=== PATIENT | female | born 1980 | race Hispanic/Latino ===

== ENCOUNTER 2018-10-20 06:00 | Inpatient (IN) | payer MEDICAID, OTHER, SELFPAY ==
[2018-10-20 07:17] VITALS: BMI 29.9
[2018-10-20] MEDS ORDERED: Promethazine HCl 25 MG/ML VIAL IM PRN ×2 (08:08→16:04)
[2018-10-20] MEDS ORDERED: NS / Oxytocin 40 units/1000ml 1,000 ML IV PRN (08:08)
[2018-10-20] MEDS ORDERED: Labetalol 100 MG TAB PO SCH ×2 (08:08→22:45)
[2018-10-20] MEDS ORDERED: Ondansetron PF 4 MG/2 ML Vial IVP PRN ×2 (08:08→16:04)
[2018-10-20] MEDS ORDERED: Lidocaine 1% (PF) 30 ML VIAL SC PRN (08:08)
[2018-10-20] MEDS ORDERED: Ibuprofen 800 MG TAB PO PRN (08:08)
[2018-10-20] MEDS ORDERED: NS w/ Oxytocin 10 units 500 ML IV SCH (08:08)
--- NOTE | 2018-10-20 08:08 | PDOC.FPROB ---
FMR OB H&P: HPI - History of Present Illness Chief Complaint: Induction of Labor History of Present Illness: Patient is a 38 yo at 38.1 weeks by 10.4wk tete who presents for induction of labor for chronic Hypertension. Chronic HTN: Patient usually takes Labetalol 100 mg BID, last dose was yesterday evening. BP logs have been at goal. course was complicated by exposure to an Losartan in the 1st trimester. 24hr urine protein 165. Anemia: complicated by anemia for which patient took iron tablets. UTI: Patient also had UTI and was taking Macrobid & Cephalexin in early 1st trimester. Urine culture negative. Patient denies any complaints currently. Denies contractions, vaginal bleeding, vaginal discharge, loss of fluid. FMR OB H&P: Current - Care : 9 Para: 7 Gestational age: 38.1 weeks Dating Criteria: 10.4 week U/S - OB Labs Blood type: O RH: positive Antibody Screen: negative HIV: negative RPR: negative HepBsAg: negative Rubella: immune Quad screen: negative Urine drug screen: negative Gonorrhea: negative Chlamydia: negative 1 hour gtt: 115 3 hour GTT: 130 A1c: 5.2% GBS: negative FMR OB H&P: History - Past Medical History PMH: Chronic HTN, Anemia, hx of UTI - OB History OB History: , all previous deliveries were vaginal and uncomplicated - Surgical History Sx History: Mastitis surgery 12 yrs ago - Social History Social History: Denies tobacco or EtOH use FMR OB H&P: Medications - Current Home Medications: Medication Instructions Recorded Confirmed Type Iron 18 mg PO DAILY 10/20/18 10/20/18 History Labetalol [Normodyne] 100 mg PO BID 10/20/18 10/20/18 History PNV No.118/Iron Fumarate/FA 100 mg PO DAILY 10/20/18 10/20/18 History [ 19 Chewable Tablet] Allergies/Adverse Reactions: Allergies Allergy/AdvReac Type Severity Reaction Status Date / Time verapamil Allergy Intermediate Verified 10/20/18 07:21 escitalopram [From Lexapro] Allergy Mild Verified 10/20/18 07:39 Pork/Porcine Containing Allergy Mild Verified 10/20/18 07:21 Products FMR OB H&P: ROS - Review of Systems General: denies: fever/chills, weight/appetite/sleep changes, fatigue Eyes: denies: eye pain, vision changes, double vision ENT: denies: nasal congestion, rhinorrhea, sore throat Cardiovascular: denies: chest pain, palpitation, edema, claudication Respiratory: denies: cough, congestion, shortness of breath Gastrointestinal: denies: abdominal pain, bloating, nausea, vomiting, bright red blood Genitourinary (Female): denies: incontinence, dysuria, vaginal discharge, vaginal pain, vaginal bleeding, vaginal pressure Musculoskeletal: denies: pain, swelling, decrease range of motion Neurologic: denies: numbness, syncope, loss of counsciousness, headache Integumentary: denies: itching, rash, lesions Hematologic/Lymphatic: denies: prolonged or excessive bleeding Psychological: denies: depression FMR OB H&P: Vital Signs - Maternal Vital signs: BP 152/101 @ 0740 - Heart Tones Baseline: 150 Variability: moderate Acceleration: present Deceleration: absent Category: category [address] [place] contractions every: occasional/infrequent FMR OB H&P: Physical Exam - Physical Exam General: NAD, awake, alert and oriented HEENT: normocephalic and atraumatic, EOMI, MMM, conjunctiva clear, no scleral icterus, grossly normal vision, grossly normal hearing, good dention Neck: supple, FROM, no JVD Heart: RRR, normal S1/S2, no murmurs/rubs/gallops, pulses present, no edema General: CTAB, no respiratory distress, good air movement, no rales/rhonchi, no wheezing Abdomen: soft, non-tender Musculoskeletal: pulses present, FROM in all four extremities Neurological: sensation to pain,touch and proprioception grossly normal, no focal deficit Skin: no rash, good tugor, no jaundice Lymphatic: no unusual bruising or bleeding Psychiatric: intact recent and remote memory, normal mood and affect - Pelvic Exam Vulva: normal hair distribution, no discharge, no blood SVE: 3-4/50/-3 Pham score: 4 Membranes: intact Presentation: cephalic FMR OB H&P: A/P - Problem List (1) Elective induction of labor planned Current Visit: Yes Status: Acute Code(s): [id number] - (2) Anemia Current Visit: Yes Status: Acute Code(s): D64.9 - ANEMIA, UNSPECIFIED Qualifiers: Anemia type: iron deficiency (3) Chronic hypertension during Current Visit: Yes Status: Acute Code(s): O10.919 - UNSP PRE-EXISTING HTN COMP , UNSP TRIMESTER Disposition: #Induction of Labor for chronic HTN -initial check 3-4/50%/-3 -will start Pitocin titration -Cytotec not indicated -will perform cervical check in 3-4 hrs #Anemia -check H/H -patient previously taking daily iron #Chronic HTN -check urine Cr and protein -continue Labetalol, with a 1 time now dose, then resume BID -monitor BP -Hydralazine prn -last 24 hr urine protein 165 - exposure to Losartan in 1st trimester, anatomy U/S normal (level 2 sono normal) #Hx of UTI -recent urine culture negative -GBS negative #Increased risk of TB -TB test read today was negative #Glucose Intolerance -failed 1 hr GTT, passed 3hr GTT with 1 abnormal at 2 hr -TSH normal Discussion: Date/Time: 10/20/18806 This H&P was discussed with Dr. Romero and Dr. Geronimo who agree with the above documentation and plan. Addendum - Attending - Attending Attestation Date/Time: 10/20/18949 I personally evaluated the patient and discussed the management with Dr. Roberts I agree with the History, Examination, Assessment and Plan documented above with any addition or exceptions noted below. 38 yo at 38.1 weeks by 10.4wk griseldao undergoing induction of labor for chronic hypertension controlled on oral medications. 1. Start IOL with pitocin 2. GBS negative. Prophylaxis not indicated 3. Cephalic by sutures 4. Chronic anemia of 5. Chronic hypertension-has had multiple severe range pressures this morning but pt did not take her medication. Denies FIERRO, vision changes or RUQ pain. Will give medication now. If she continues to have elevated pressures in severe range will start magnesium for superimposed preeclampsia. 6. Grand multip-PPH risk. Will have uterotonics at bedside. No methergine per #6 7. Anticipate
[2018-10-20] MEDS: Lactated Ringer's 1,000 ML IV SCH ×2 (08:28→14:54)
[2018-10-20] MEDS: hydrALAZINE 20 MG/ML VIAL SLOW IVP PRN ×2 (08:42→22:05)
[2018-10-20 08:52] LABS: Hemoglobin 11.9 g/dL (12.0-16.0); Mean Corpuscular HGB CONC 33.6 g/dL (32.0-36.0); Mean Corpuscular Hemoglobin 27.7 pg (27.0-31.0); Mean Corpuscular Volume 82.4 fL (78.0-98.0); Platelet Count 224 thou/uL (130-400); RBC Distribution Width 15.1 % (11.5-14.5); White Blood Cell (WBC) Count 7.9 thou/uL (4.8-10.8)
[2018-10-20 09:24] LABS: ALT (SGPT) 11 U/L (8-55); AST (SGOT) 20 U/L (5-34); Albumin 3.5 g/dL (3.5-5.0); Alkaline Phosphatase 130 U/L (40-150); Anion Gap 15 mmol/L (10-20); BUN (Urea Nitrogen) 8 mg/dL (7.0-18.7); Bilirubin, Total 0.3 mg/dL (0.2-1.2); Calc. Creatinine Clearance 174 mL/min (70-130); Calcium 8.7 mg/dL (7.8-10.44); Carbon Dioxide 18 mmol/L (22-29); Chloride 106 mmol/L (98-107); Estimated GFR-MDRD Greater than 90; Globulin 3.4 g/dL (2.4-3.5); Glucose 71 mg/dL (70-105); Potassium 3.9 mmol/L (3.5-5.1); Protein, Total 6.9 g/dL (6.0-8.3); Sodium 135 mmol/L (136-145)
[2018-10-20 09:32] LABS: HBSAg Index 0.16 S/CO (0-0.99); Hep B Surf Ag Non-Reactive S/CO (NonReactive); Syphilis Antibody Nonreactive (Nonreactive); Syphilis Antibody Index 0.05 S/CO (<1.00 Non-Reactive)
[2018-10-20] MEDS ORDERED: Calcium Gluc 4.6 MEQ/10 ML (100 MG/ML) SLOW IVP PRN (10:13)
[2018-10-20] MEDS ORDERED: Magnesium Sulfate 20 GM/WATER 500 ML BAG IVPB SCH (10:15)
[2018-10-20] MEDS ORDERED: Magnesium Sulfate 20 gm/500 ml 20 GM/500 ML BAG ONE (10:30)
[2018-10-20] MEDS: Magnesium Sulfate 20 gm/500 ml 20 GM/500 ML BAG IVPB SCH ×2 (10:51→21:53)
[2018-10-20] MEDS ORDERED: Bupivacaine 0.25% HCL 30 ML VIAL ONE (11:11)
[2018-10-20] MEDS ORDERED: Acetaminophen 325 MG TAB PO PRN (11:18)
--- NOTE | 2018-10-20 12:15 | PDOC.LDPN ---
Labor & Delivery Progress Note - Subjective Subjective: comfortable (Denies SOB, FIERRO, vision changes, nausea, vomiting. Complains of mild FIERRO and abd tenderness.) - Objective Abnormal vital signs: BP 163/97, HR 68, UOP 300cc in past 1 hour. General: NAD, resting, breathing through contractions Uterine fundus: non tender SVE: 460/-3 Station: -3 FHT: category 1 [place] contractions every: 2-3 min Other exam findings: RUQ mildly TTP. Heart RRR, no murmur. Lungs CTA bilat. DTRs 2+ in LE. - Assessment (1) Elective induction of labor planned Code(s): [id number] - Current Visit: Yes Status: Acute (2) Anemia Code(s): D64.9 - ANEMIA, UNSPECIFIED Current Visit: Yes Status: Acute Qualifiers: Anemia type: iron deficiency (3) Chronic hypertension during Code(s): O10.919 - UNSP PRE-EXISTING HTN COMP , UNSP TRIMESTER Current Visit: Yes Status: Acute Plan: continue plan of care -: Patient started on Magnesium at approx. 1030 today. No signs of Mag toxicity at this time. BP remains elevated in 160s/90s through morning. Will add on prn Labetalol 20mg IVP per [facility] protocol. FHR tracing shows HR 135, reactive & reassuring. Will continue to monitor with serial cervical checks. Will also perform Mag checks every 2 hours.
--- NOTE | 2018-10-20 14:13 | PDOC.LDPN ---
Labor & Delivery Progress Note - Subjective Subjective: comfortable - Objective Abnormal vital signs: few severe range blood pressures, on magnesium General: NAD Uterine fundus: non tender SVE: @ [address] Lawrence - 4/60/-2/anterior/soft FHT: category 1, variability present [place] contractions every: 2 min AROM: clear fluid IUPC placed: yes - Assessment (1) Term Code(s): Z34.90 - ENCNTR FOR SUPRVSN OF NORMAL , UNSP, UNSP TRIMESTER Current Visit: Yes Status: Acute (2) Chronic hypertension with superimposed preeclampsia Code(s): O11.9 - PRE-EXISTING HYPERTENSION WITH PRE-ECLAMPSIA, UNSP TRIMESTER Current Visit: Yes Status: Acute Plan: continue plan of care Addendum - Attending - Attending Attestation Date/Time: 10/21/18 0936 I personally evaluated the patient and discussed the management with Dr. Lawrence. I agree with the History, Examination, Assessment and Plan documented above with any addition or exceptions noted below. Continue neuro checks/sz precuations/BP monitoring and magnesium with strict I/ Os
[2018-10-20] MEDS: Labetalol HCl 100 MG/20 ML VIAL SLOW IVP PRN ×2 (14:56→16:06)
[2018-10-20] MEDS ORDERED: Fentanyl 4 mcg/Bup 0.1% Cadd 100 ML ONE (15:10)
[2018-10-20] MEDS ORDERED: diphenhydrAMINE 50 MG/ML VIAL IVP PRN (16:04)
[2018-10-20] MEDS ORDERED: Lactated Ringer's 500 ML IV PRN (16:04)
[2018-10-20] MEDS ORDERED: Naloxone HCl 0.4 mg/ml Vial IVP PRN ×2 (16:04)
[2018-10-20] MEDS ORDERED: ePHEDrine/0.9% NaCl/PF SYRINGE 50 mg/10 ml SLOW IVP PRN (16:04)
[2018-10-20] MEDS ORDERED: Communication Order-Pharmacy FS SCH (16:15)
[2018-10-20] MEDS ORDERED: Fentanyl 4 mcg/Bupivacaine 0.1% Cassette 100 ML EPIDURAL SCH (16:15)
[2018-10-20] MEDS ORDERED: Lidocaine 1% (PF) 30 ML VIAL ONE (16:48)
[2018-10-20] MEDS ORDERED: NS / Oxytocin 40 units/1000ml 0 ML ONE (16:48)
[2018-10-20] MEDS ORDERED: Misoprostol 200 MCG TAB ONE ×2 (17:10→17:17)
[2018-10-20] MEDS ORDERED: NS / Oxytocin 40 units/1000ml 1,000 ML ONE (17:17)
[2018-10-20] MEDS ORDERED: Methylergonovine 0.2 MG/ML VIAL ONE (17:17)
[2018-10-20] MEDS ORDERED: Carboprost 250 MCG/ML AMP ONE (17:17)
[2018-10-20] MEDS ORDERED: Misoprostol 200 MCG TAB PR SCH (17:30)
--- NOTE | 2018-10-20 18:17 | PDOC.OPDEL ---
OB Operative/Delivery Note Delivery Dr/Surgeon: Howard Roberts Williamson Pre-Delivery Diagnosis: medically indicated induction (chronic HTN) Procedure/Post Delivery Dx: spontaneous vaginal delivery Anesthesia: epidural - Additional Findings/Plan Placenta delivered: spontaneous Repaired Obstetrical Laceration: none Estimated blood loss: 570 mL Compilations/Other Findings: Pre-op Diagnosis: 1. Term intrauterine in labor 2. Chronic hypertension with superimposed Pre-eclampsia 3. Anemia 4. Grand multiparous 5. Advanced maternal age Post-op Diagnosis: 1. Term intrauterine , delivered 2. same as above Indications: A 38 y/o female presents to L&D for induction due to chronic hypertension. Delivery Note: This is 38 yo F @ 38.1 wks who delivered a viable M at 1707. Following an antepartum course complicated by pre-eclampsia superimposed on chronic hypertension requiring Magnesium and Labetalol prn, a vigorous male was delivered over an intact perineum in the LOP position. Anterior Shoulder and then remainder of the body delivered. No nuchal cord. The head was held down and mouth and nares were bulb suctioned. Cord clamped after delayed cord clamping, and cut and cord blood collected. Placenta delivered intact in the [place] presentation with a 3 vessel cord noted. Fundal massage was performed and the fundus was firm except for the lower posterior portion which was boggy. Pitocin bolus was given and fundal massage was performed for approx. 15 min. Cytotec 600 mcg was placed per rectum. Bleeding began to slow and eventually stopped at approx. 1725. QBL was 570 mL. The cervix and vagina were inspected and found to be free of lacerations. Infant went to nursery in good condition for routine care. Apgars were 8/9 at 1 & 5 minutes, respectively. Patient tolerated delivery well and went to after routine recovery/care. Post delivery plan: routine recovery (Will restart Labetalol 100 mg BID. Continue to monitor for signs of bleeding. Will continue serial Mag checks.) Addendum - Attending - Attending Attestation Date/Time: 10/21/18 8211 I was present for the entire delivery.
--- NOTE | 2018-10-20 18:33 | PDOC.LDPN ---
Labor & Delivery Progress Note - Subjective Subjective: comfortable, vaginal pressure, no concerns - Objective Abnormal vital signs: BP 161/106, repeat 10 min after Labetalol 20 was 130/86, UOP 300 past 2 hr General: NAD, resting, breathing through contractions Uterine fundus: non tender SVE: 7/80-90/-1 Effacement: 90% Station: -1 FHT: category 2 (FHR 131), variable decelerations, variability present [place] contractions every: 2 min Other exam findings: Heart RRR, no murmurs. Lungs CTA bilat. Abd nontender. DTRs 2+ in LE AROM: clear fluid IUPC placed: yes - Assessment (1) Elective induction of labor planned Code(s): [id number] - Current Visit: Yes Status: Acute (2) Anemia Code(s): D64.9 - ANEMIA, UNSPECIFIED Current Visit: Yes Status: Acute Qualifiers: Anemia type: iron deficiency (3) Chronic hypertension during Code(s): O10.919 - UNSP PRE-EXISTING HTN COMP , UNSP TRIMESTER Current Visit: Yes Status: Acute Plan: continue plan of care -: Continue current management with Labetalol prn for BP160</110<. Continue to monitor with serial cervical checks and mag checks. Addendum - Attending - Attending Attestation Date/Time: 10/21/18 7941 I personally evaluated the patient and discussed the management with Dr. Roberts on 10/20. I agree with the History, Examination, Assessment and Plan documented above with any addition or exceptions noted below.
[2018-10-20] MEDS: Acetaminophen 325 MG TAB PO PRN (21:50)
--- NOTE | 2018-10-20 22:38 | PDOC.OBMPN ---
R OB LDICU PN: Subj - Interval History Hospital Day: 1 Chief Complaint: none Indentification: 38 yo female Interval History: Delivered at 1707. R OB LDICU PN: Obj - Maternal Vital signs: BP: 130s/90s, HR 90s - Urine output I&O: 10/19/18 10/20/18 10/21/18 06:59 06:59 06:59 Output Total 1073 Balance -1073 R OB LDICU PN: Exam - Physical Exam General: NAD, awake, alert and oriented Neck: supple Heart: RRR, normal S1/S2, no murmurs/rubs/gallops General: CTAB, no respiratory distress, good air movement, no rales/rhonchi, no wheezing Abdomen: soft, fundus(cm) (firm, below umbilicus), non-tender Neurological: DTR +2, no focal deficit Skin: no rash R OB LDICU PN: Data - Labs Lab results: Laboratory Results - last 24 hr 10/20/18 10/20/18 10/20/18 08:09 08:09 08:09 WBC RBC Hgb Hct MCV MCH MCHC RDW Plt Count MPV Sodium Potassium Chloride Carbon Dioxide Anion Gap BUN Creatinine Estimated GFR (MDRD) Glucose Calcium Total Bilirubin AST ALT Alkaline Phosphatase Serum Total Protein Albumin Globulin Albumin/Globulin Ratio U Random Total Protein Urine Creatinine Syphilis IgG/IgM Ab Nonreactive Hep Bs Antigen Non-Reactive Blood Type O POSITIVE Antibody Screen NEGATIVE 10/20/18 10/20/18 10/20/18 08:09 08:12 09:00 WBC 7.9 RBC 4.30 Hgb 11.9 L Hct 35.4 L MCV 82.4 MCH 27.7 MCHC 33.6 RDW 15.1 H Plt Count 224 MPV 9.0 Sodium 135 L Potassium 3.9 Chloride 106 Carbon Dioxide 18 L Anion Gap 15 BUN 8 Creatinine 0.62 Estimated GFR (MDRD) Greater than 90 Glucose 71 Calcium 8.7 Total Bilirubin 0.3 AST 20 ALT 11 Alkaline Phosphatase 130 Serum Total Protein 6.9 Albumin 3.5 Globulin 3.4 Albumin/Globulin Ratio 1.0 L U Random Total Protein Urine Creatinine 108.45 Syphilis IgG/IgM Ab Hep Bs Antigen Blood Type Antibody Screen 10/20/18 10/20/18 09:00 09:13 WBC RBC Hgb Hct MCV MCH MCHC RDW Plt Count MPV Sodium Potassium Chloride Carbon Dioxide Anion Gap BUN Creatinine Estimated GFR (MDRD) Glucose Calcium Total Bilirubin AST ALT Alkaline Phosphatase Serum Total Protein Albumin Globulin Albumin/Globulin Ratio U Random Total Protein 15 H Urine Creatinine Syphilis IgG/IgM Ab Hep Bs Antigen Blood Type O POSITIVE Antibody Screen FMR OB LDICU PN:A/P - Problem List (1) Chronic hypertension during Current Visit: Yes Status: Acute Code(s): O10.919 - UNSP PRE-EXISTING HTN COMP , UNSP TRIMESTER (2) Chronic hypertension with superimposed preeclampsia Current Visit: Yes Status: Acute Code(s): O11.9 - PRE-EXISTING HYPERTENSION WITH PRE-ECLAMPSIA, UNSP TRIMESTER (3) Elective induction of labor planned Current Visit: Yes Status: Acute Code(s): [id number] - Disposition: 38 yo F now P8 who delivered a TAGA male at 1707 on 10/20/18 via @ 38.1 by 10.4wk US complicated by PreE superimposed on cHTN. Mg check - Reflexes 2+ BL, no dyspnea, lungs CTAB, BP 130s/90s with HR 90s. Team was paged at 1830 for increased vaginal bleeding. Bimanual was performed and approx 100cc clots were evacuated. Patient tolerated well and no increased bleeding. Uterus was firm and below umbilicus. Discussion: Date/Time: 10/20/182236 This H&P was discussed with [] and [] who agree with the above documentation and plan. Addendum - Attending - Attending Attestation Date/Time: 10/20/182144 I personally evaluated the patient and discussed the management with Dr. Moran and Dr. Zaldivar I agree with the History, Examination, Assessment and Plan documented above with any addition or exceptions noted below. 38 yo now female s/p at 38.1 on 10/20/18 at 1707 HD#1 PPD#0 Patient on mag for seizure ppx due to superimposed preeclampsia with severe features. Doing well. VSS. Appropriate UOP. 1. s/p : Brisk bleeding post delivery. Continue close monitoring. 2. chronic HTN with superimposed preE with severe features: Continue mag ppx for 24 hour after delivery. No evidence of mag tox. Continue to monitor UOP. Address if less than 100 mL per hour. BP stable. Continue oral labetolol 200 mg BID. Increased risk for CV dz. 3. Anemia: Start iron supplementation. Increased blood loss at delivery. 4. AMA 5. : Continue to encourage 6. Contraception: Continue to discuss and encourage planning. Ayla
[2018-10-21] MEDS: Labetalol HCl 100 MG/20 ML VIAL SLOW IVP PRN (00:19)
--- NOTE | 2018-10-21 00:47 | PDOC.OBMPN ---
FMR OB LDICU PN: Subj - Interval History Hospital Day: 2 (PPD#1) Chief Complaint: none Indentification: 38 yo female Interval History: s/p delivery on 10/20/18 at 1707 now on mag ppx FMR OB LDICU PN: Obj - Maternal Vital signs: BP: 160s/90s, HR 70-80s. - Urine output I&O: 10/19/18 10/20/18 10/21/18 06:59 06:59 06:59 Output Total 1073 Balance -1073 FMR OB LDICU PN: Exam - Physical Exam General: NAD, awake, alert and oriented Neck: supple Heart: RRR General: CTAB, no respiratory distress, good air movement, no rales/rhonchi, no wheezing, no retractions Abdomen: soft Neurological: DTR +2 R OB LDICU PN: Data - Labs Lab results: Laboratory Results - last 24 hr 10/20/18 10/20/18 10/20/18 08:09 08:09 08:09 WBC RBC Hgb Hct MCV MCH MCHC RDW Plt Count MPV Sodium Potassium Chloride Carbon Dioxide Anion Gap BUN Creatinine Estimated GFR (MDRD) Glucose Calcium Total Bilirubin AST ALT Alkaline Phosphatase Serum Total Protein Albumin Globulin Albumin/Globulin Ratio U Random Total Protein Urine Creatinine Syphilis IgG/IgM Ab Nonreactive Hep Bs Antigen Non-Reactive Blood Type O POSITIVE Antibody Screen NEGATIVE 10/20/18 10/20/18 10/20/18 08:09 08:12 09:00 WBC 7.9 RBC 4.30 Hgb 11.9 L Hct 35.4 L MCV 82.4 MCH 27.7 MCHC 33.6 RDW 15.1 H Plt Count 224 MPV 9.0 Sodium 135 L Potassium 3.9 Chloride 106 Carbon Dioxide 18 L Anion Gap 15 BUN 8 Creatinine 0.62 Estimated GFR (MDRD) Greater than 90 Glucose 71 Calcium 8.7 Total Bilirubin 0.3 AST 20 ALT 11 Alkaline Phosphatase 130 Serum Total Protein 6.9 Albumin 3.5 Globulin 3.4 Albumin/Globulin Ratio 1.0 L U Random Total Protein Urine Creatinine 108.45 Syphilis IgG/IgM Ab Hep Bs Antigen Blood Type Antibody Screen 10/20/18 10/20/18 09:00 09:13 WBC RBC Hgb Hct MCV MCH MCHC RDW Plt Count MPV Sodium Potassium Chloride Carbon Dioxide Anion Gap BUN Creatinine Estimated GFR (MDRD) Glucose Calcium Total Bilirubin AST ALT Alkaline Phosphatase Serum Total Protein Albumin Globulin Albumin/Globulin Ratio U Random Total Protein 15 H Urine Creatinine Syphilis IgG/IgM Ab Hep Bs Antigen Blood Type O POSITIVE Antibody Screen FMR OB LDICU PN:A/P - Problem List (1) Chronic hypertension during Current Visit: Yes Status: Acute Code(s): O10.919 - UNSP PRE-EXISTING HTN COMP , UNSP TRIMESTER (2) Chronic hypertension with superimposed preeclampsia Current Visit: Yes Status: Acute Code(s): O11.9 - PRE-EXISTING HYPERTENSION WITH PRE-ECLAMPSIA, UNSP TRIMESTER (3) Elective induction of labor planned Current Visit: Yes Status: Acute Code(s): [id number] - Disposition: 38 yo F now P8 who delivered a TAGA male at 1707 on 10/20/18 via @ 38.1 by 10.4wk US complicated by PreE superimposed on cHTN. Mg check - Reflexes 2+ BL, no dyspnea, lungs CTAB, BP 160s/90s with HR 70s-80s. - continue labetelol 200mg BID - next mg check in 4hrs. Monitor closely. Addendum - Attending - Attending Attestation Date/Time: 10/21/18 0057 I personally evaluated the patient and discussed the management with Dr. Moran and Dr. Zaldivar I agree with the History, Examination, Assessment and Plan documented above with any addition or exceptions noted below. 38 yo now female s/p at 38.1 on 10/20/18 at 1707 HD#1 PPD#1 Patient on mag for seizure ppx due to superimposed preeclampsia with severe features. Doing well. VSS. Appropriate UOP. Asymptomatic. Lochia appropriate. Pain controlled. 1. s/p : Stable. Continue routine pp care. 2. chronic HTN with superimposed preE with severe features: Continue mag ppx for 24 hour after delivery. No evidence of mag tox. Continue to monitor UOP. Address if less than 100 mL per hour. BP stable. Continue oral labetolol 200 mg BID. Increased risk for CV dz. Will need close follow up for risk adjustments and preventative care. 3. Anemia: Iron supplementation. Increased blood loss at delivery. 4. AMA 5. : Continue to encourage 6. Contraception: Continue to discuss and encourage planning. Ayla
[2018-10-21] MEDS: Lactated Ringer's 1,000 ML IV SCH ×2 (04:14→13:33)
--- NOTE | 2018-10-21 04:29 | PDOC.OBMPN ---
[facility] OB LDICU PN: Subj - Interval History Hospital Day: 2 Chief Complaint: None offered Indentification: 38 yo female s/p on 10/20/18 at 1707 Interval History: Pt denies Headache, Chest pain, SOB [facility] OB LDICU PN: Obj - Maternal Vital signs: BP: Had a few severe range BP. 160/94 around midnight. All other pressures since ranging from 130-140. Pulse 82 - Urine output I&O: 10/19/18 10/20/18 10/21/18 06:59 06:59 06:59 Output Total 1073 Balance -1073 [facility] OB LDICU PN: Exam - Physical Exam General: NAD, awake, alert and oriented HEENT: grossly normal vision, grossly normal hearing Heart: RRR, normal S1/S2, no murmurs/rubs/gallops, pulses present, no edema General: CTAB, no respiratory distress, good air movement, no rales/rhonchi, no wheezing, no retractions Abdomen: soft, gravid Deviation from normal: appropriatley tender to palpation Neurological: sensation to pain,touch and proprioception grossly normal, DTR +2 [facility] OB LDICU PN: Data - Labs Lab results: Laboratory Results - last 24 hr 10/20/18 10/20/18 10/20/18 08:09 08:09 08:09 WBC RBC Hgb Hct MCV MCH MCHC RDW Plt Count MPV Sodium Potassium Chloride Carbon Dioxide Anion Gap BUN Creatinine Estimated GFR (MDRD) Glucose Calcium Total Bilirubin AST ALT Alkaline Phosphatase Serum Total Protein Albumin Globulin Albumin/Globulin Ratio U Random Total Protein Urine Creatinine Syphilis IgG/IgM Ab Nonreactive Hep Bs Antigen Non-Reactive Blood Type O POSITIVE Antibody Screen NEGATIVE 10/20/18 10/20/18 10/20/18 08:09 08:12 09:00 WBC 7.9 RBC 4.30 Hgb 11.9 L Hct 35.4 L MCV 82.4 MCH 27.7 MCHC 33.6 RDW 15.1 H Plt Count 224 MPV 9.0 Sodium 135 L Potassium 3.9 Chloride 106 Carbon Dioxide 18 L Anion Gap 15 BUN 8 Creatinine 0.62 Estimated GFR (MDRD) Greater than 90 Glucose 71 Calcium 8.7 Total Bilirubin 0.3 AST 20 ALT 11 Alkaline Phosphatase 130 Serum Total Protein 6.9 Albumin 3.5 Globulin 3.4 Albumin/Globulin Ratio 1.0 L U Random Total Protein Urine Creatinine 108.45 Syphilis IgG/IgM Ab Hep Bs Antigen Blood Type Antibody Screen 10/20/18 10/20/18 09:00 09:13 WBC RBC Hgb Hct MCV MCH MCHC RDW Plt Count MPV Sodium Potassium Chloride Carbon Dioxide Anion Gap BUN Creatinine Estimated GFR (MDRD) Glucose Calcium Total Bilirubin AST ALT Alkaline Phosphatase Serum Total Protein Albumin Globulin Albumin/Globulin Ratio U Random Total Protein 15 H Urine Creatinine Syphilis IgG/IgM Ab Hep Bs Antigen Blood Type O POSITIVE Antibody Screen [facility] OB LDICU PN:A/P - Problem List (1) Chronic hypertension with superimposed preeclampsia Current Visit: Yes Status: Acute Code(s): O11.9 - PRE-EXISTING HYPERTENSION WITH PRE-ECLAMPSIA, UNSP TRIMESTER Disposition: 38 yo F now P8 who delivered a TAGA male at 1707 on 10/20/18 via @ 38.1 by 10.4wk US complicated by PreE superimposed on cHTN. Mg check - Reflexes 2+ BL, no dyspnea, lungs CTAB, HR 70s-80s. Pt did not receive night labetalol dose til 1am. Given 200mg. Presssures have significantly improved. Pressures ranging from 130-140. Had one sever range around midnight. - continue labetelol 200mg BID - next mg check in 4hrs. Monitor closely. Discussion: Date/Time: 10/21/18 0427 This H&P was discussed with [] and [] who agree with the above documentation and plan. Addendum - Attending - Attending Attestation Date/Time: 10/21/18 0600 I personally evaluated the patient and discussed the management with Dr. Moran and Dr. Zaldivar I agree with the History, Examination, Assessment and Plan documented above with any addition or exceptions noted below. 38 yo now female s/p at 38.1 on 10/20/18 at 1707 HD#1 PPD#1 Patient on mag for seizure ppx due to superimposed preeclampsia with severe features. Doing well. Severe range BP this AM. Appropriate UOP. Remains asymptomatic. Lochia appropriate. Pain controlled. 1. s/p : Stable. Continue routine pp care. 2. chronic HTN with superimposed preE with severe features: Continue mag ppx for 24 hour after delivery. No evidence of mag tox. Continue to monitor UOP. Address if less than 100 mL per hour. BP stable. Continue oral labetolol 200 mg BID. Increased risk for CV dz. Will need close follow up for risk adjustments and preventative care. 3. Anemia: Iron supplementation. Increased blood loss at delivery. 4. AMA 5. : Continue to encourage 6. Contraception: Continue to discuss and encourage planning. Ayla
[2018-10-21] MEDS ORDERED: Bisacodyl 10 MG SUPP PR PRN (07:46)
[2018-10-21] MEDS ORDERED: Milk Of Magnesia 30 ML UDCUP PO PRN (07:46)
[2018-10-21] MEDS ORDERED: Adacel (T-DAP) 0.5 ML SYRINGE IM ONE (07:46)
[2018-10-21] MEDS ORDERED: hydrALAZINE 20 MG/ML VIAL SLOW IVP PRN ×2 (07:46→19:41)
--- NOTE | 2018-10-21 07:50 | PDOC.OBMPN ---
[facility] OB LDICU PN: Subj - Interval History Indentification: 38 y/o ->[id number] delivered via @ 1707 on 10/21 at 38.1 WGA Interval History: Abd pain controlled, minimal lochia, +H/A, No scotoma, RUQ pain, SOB R OB LDICU PN: Obj - Maternal Vital signs: BP: 142/89 HR: 83 RR: 18 Tmax: 98.9 - Urine output I&O: 10/20/18 10/21/18 10/22/18 06:59 06:59 06:59 Output Total 1073 Balance -1073 [facility] OB LDICU PN: Exam - Physical Exam General: NAD, awake, alert and oriented HEENT: normocephalic and atraumatic, MMM, conjunctiva clear, no scleral icterus , grossly normal vision, grossly normal hearing Neck: supple, no LAD Heart: RRR, normal S1/S2, no murmurs/rubs/gallops, pulses present, no edema General: CTAB, no respiratory distress, good air movement, no rales/rhonchi, no wheezing Abdomen: soft, fundus(cm) (firm 1 cm below umbilicus), non-tender, bowel sound present Musculoskeletal: FROM in all four extremities Neurological: no clonus, no focal deficit Skin: good tugor, capillary refill <2 seconds Psychiatric: intact recent and remote memory, good judgement and insight [facility] OB LDICU PN: Data - Labs Lab results: Laboratory Results - last 24 hr 10/20/18 10/20/18 10/20/18 08:09 08:09 08:09 WBC RBC Hgb Hct MCV MCH MCHC RDW Plt Count MPV Sodium Potassium Chloride Carbon Dioxide Anion Gap BUN Creatinine Estimated GFR (MDRD) Glucose Calcium Total Bilirubin AST ALT Alkaline Phosphatase Serum Total Protein Albumin Globulin Albumin/Globulin Ratio U Random Total Protein Urine Creatinine Syphilis IgG/IgM Ab Nonreactive Hep Bs Antigen Non-Reactive Blood Type O POSITIVE Antibody Screen NEGATIVE 10/20/18 10/20/18 10/20/18 08:09 08:12 09:00 WBC 7.9 RBC 4.30 Hgb 11.9 L Hct 35.4 L MCV 82.4 MCH 27.7 MCHC 33.6 RDW 15.1 H Plt Count 224 MPV 9.0 Sodium 135 L Potassium 3.9 Chloride 106 Carbon Dioxide 18 L Anion Gap 15 BUN 8 Creatinine 0.62 Estimated GFR (MDRD) Greater than 90 Glucose 71 Calcium 8.7 Total Bilirubin 0.3 AST 20 ALT 11 Alkaline Phosphatase 130 Serum Total Protein 6.9 Albumin 3.5 Globulin 3.4 Albumin/Globulin Ratio 1.0 L U Random Total Protein Urine Creatinine 108.45 Syphilis IgG/IgM Ab Hep Bs Antigen Blood Type Antibody Screen 10/20/18 10/20/18 09:00 09:13 WBC RBC Hgb Hct MCV MCH MCHC RDW Plt Count MPV Sodium Potassium Chloride Carbon Dioxide Anion Gap BUN Creatinine Estimated GFR (MDRD) Glucose Calcium Total Bilirubin AST ALT Alkaline Phosphatase Serum Total Protein Albumin Globulin Albumin/Globulin Ratio U Random Total Protein 15 H Urine Creatinine Syphilis IgG/IgM Ab Hep Bs Antigen Blood Type O POSITIVE Antibody Screen [facility] OB LDICU PN:A/P - Problem List (1) Term delivered Current Visit: Yes Status: Acute Code(s): O80 - ENCOUNTER FOR FULL-TERM UNCOMPLICATED DELIVERY Assessment and Plan: PPD#1 s/p -Ibuprofen and tylenol for pain control -Encourage ambulation after magnesium stopped -Currently NPO while on mag -Does not desire circ for , plans to breast and bottle feed (2) Chronic hypertension with superimposed preeclampsia Current Visit: Yes Status: Acute Code(s): O11.9 - PRE-EXISTING HYPERTENSION WITH PRE-ECLAMPSIA, UNSP TRIMESTER Assessment and Plan: BP well controlled with only a couple of severe range and required labetalol IV once overnight. Rest in 140s/80s range. UOP > 100mL/hr -Continue magnesium for 24 hours -Mag checks q4h -Monitor BP's closely -Labetalol 200mg BID PO -NPO (3) AMA (advanced maternal age) multigravida 35+ Current Visit: Yes Status: Acute Code(s): O09.529 - SUPERVISION OF ELDERLY MULTIGRAVIDA, UNSPECIFIED TRIMESTER (4) Grand multiparity Current Visit: Yes Status: Acute Code(s): Z64.1 - PROBLEMS RELATED TO MULTIPARITY Disposition: Continue to Monitor on L&D until 24 hours and then transfer to unit Discussion: Date/Time: 10/21/18 0748 This H&P was discussed with Dr. Romero who agrees with the above documentation and plan. Signature: Roxanne Lawrence MD, PGY-3 Addendum - Attending - Attending Attestation Date/Time: 10/21/18 9919 I personally evaluated the patient and discussed the management with Dr Roberts I agree with the History, Examination, Assessment and Plan documented above with any addition or exceptions noted below. PPD #1 s/p complicated by superimposed preeclampsia and hemorrhage. Undergoing extended magnesium recovery. BP mild range with occasional severe over night. Pain is controlled. Bleeding less than menses. Beltrán in place. Denies FIERRO, vision changes or RUQ pain. Fundus is firm and 1 cm below umbilicus. 1. -Meeting appropriate milestones. -Continue routine care 2. Superimposed preeclampsia -No signs of magnesium toxicity -Continue magnesium until 1700 today. -Labetalol increased to 200mg BID. Could consider changing to HCTZ for better control now that patient is no longer -IV labetalol prn severe range BPs 3. hemorrhage -Hemodynamically stable -calculated blood loss 497 4. Acute blood loss anemia superimposed on chronic anemia of -Asymptomatic 5. Dispo: Anticipate d/c to home on PPD #2
[2018-10-21] MEDS: Magnesium Sulfate 20 gm/500 ml 20 GM/500 ML BAG IVPB SCH (07:52)
[2018-10-21] MEDS ORDERED: NS / Oxytocin 40 units/1000ml 1,000 ML IV SCH (08:00)
[2018-10-21] MEDS: Ferrous Sulfate 325 MG TAB PO SCH ×2 (08:27→22:09)
[2018-10-21] MEDS: Docusate Calcium (SURFAK) 240 MG CAP PO SCH ×2 (08:27→22:06)
[2018-10-21] MEDS: Acetaminophen 325 MG TAB PO PRN ×2 (08:34→17:16)
[2018-10-21 08:54] LABS: Hemoglobin 10.9 g/dL (12.0-16.0); Mean Corpuscular HGB CONC 33.6 g/dL (32.0-36.0); Mean Corpuscular Hemoglobin 27.9 pg (27.0-31.0); Mean Corpuscular Volume 82.9 fL (78.0-98.0); Mean Platelet Volume 8.6 fL (7.4-10.4); Platelet Count 224 thou/uL (130-400); RBC Distribution Width 15.1 % (11.5-14.5); White Blood Cell (WBC) Count 12.2 thou/uL (4.8-10.8)
[2018-10-21] MEDS: Labetalol 100 MG TAB PO SCH ×2 (09:02→22:08)
[2018-10-21] MEDS: Prenatal Vitamin 1 TAB PO SCH (09:04)
[2018-10-21 09:09] LABS: ALT (SGPT) 9 U/L (8-55); AST (SGOT) 19 U/L (5-34); Albumin 2.9 g/dL (3.5-5.0); Alkaline Phosphatase 106 U/L (40-150); Anion Gap 12 mmol/L (10-20); BUN (Urea Nitrogen) 4 mg/dL (7.0-18.7); Bilirubin, Total 0.3 mg/dL (0.2-1.2); Calc. Creatinine Clearance 176 mL/min (70-130); Calcium 7.4 mg/dL (7.8-10.44); Carbon Dioxide 19 mmol/L (22-29); Chloride 103 mmol/L (98-107); Estimated GFR-MDRD Greater than 90; Globulin 3.2 g/dL (2.4-3.5); Glucose 104 mg/dL (70-105); Potassium 4.1 mmol/L (3.5-5.1); Protein, Total 6.1 g/dL (6.0-8.3); Sodium 130 mmol/L (136-145)
--- NOTE | 2018-10-21 12:30 | PDOC.OBMPN ---
[facility] OB LDICU PN: Subj - Interval History Hospital Day: 2 Chief Complaint: Mag Check [facility] OB LDICU PN: Obj - Maternal Vital signs: BP: 117/70 HR: 71 RR: 18 Tmax: 98.5F - Urine output I&O: 10/20/18 10/21/18 10/22/18 06:59 06:59 06:59 Output Total 1073 Balance -1073 [facility] OB LDICU PN: Exam - Physical Exam General: NAD, awake, alert and oriented HEENT: normocephalic and atraumatic, EOMI, MMM, grossly normal vision, grossly normal hearing Neck: supple, FROM Heart: RRR, normal S1/S2, no murmurs/rubs/gallops, pulses present, no edema General: CTAB, no respiratory distress, good air movement, no wheezing Abdomen: soft, other (fundus firm, mild tenderness to palpation across lower abdomen) Musculoskeletal: pulses present, FROM in all four extremities Neurological: sensation to pain,touch and proprioception grossly normal, DTR +2 (bilateral LE), no clonus, no focal deficit Skin: no rash, good tugor : appropriately tender Lymphatic: no unusual bruising or bleeding Psychiatric: normal mood and affect [facility] OB LDICU PN: Data - Labs Lab results: Laboratory Results - last 24 hr 10/21/18 10/21/18 08:30 08:30 WBC 12.2 H RBC 3.90 L Hgb 10.9 L Hct 32.4 L MCV 82.9 MCH 27.9 MCHC 33.6 RDW 15.1 H Plt Count 224 MPV 8.6 Sodium 130 L Potassium 4.1 Chloride 103 Carbon Dioxide 19 L Anion Gap 12 BUN 4 L Creatinine 0.61 Estimated GFR (MDRD) Greater than 90 Glucose 104 Calcium 7.4 L Total Bilirubin 0.3 AST 19 ALT 9 Alkaline Phosphatase 106 Serum Total Protein 6.1 Albumin 2.9 L Globulin 3.2 Albumin/Globulin Ratio 0.9 L [facility] OB LDICU PN:A/P - Problem List (1) Elective induction of labor planned Current Visit: Yes Status: Acute Code(s): [id number] - (2) Anemia Current Visit: Yes Status: Acute Code(s): D64.9 - ANEMIA, UNSPECIFIED Qualifiers: Anemia type: iron deficiency (3) Chronic hypertension during Current Visit: Yes Status: Acute Code(s): O10.919 - UNSP PRE-EXISTING HTN COMP , UNSP TRIMESTER Disposition: 38 yo F now who delivered a TAGA male at 1707 on 10/20/18 via @ 38.1 by 10.4wk US complicated by PreE superimposed on cHTN. Patient overall doing well. Complains of mild FIERRO that improves with Tylenol. Denies chest pain, SOB, vision changes, n/v, RUQ pain. #Mag check - no severe range pressures in past 4 hours, avg BP 110s/60s-70s - continue labetelol 200mg BID, will consider transition to Nifedipine or HCTZ or Chlorthalidone once magnesium is discontinued, will check to see what is affordable for patient - next mg check in 4hrs. Monitor closely. - plan to stop Magnesium at 1700 today Dispo: Admitted to L&D for continued Magnesium, with plan to stop at 1700. Anticipate transition to floor later this evening. Discussion: Date/Time: 10/21/18 1227 This H&P was discussed with [] and [] who agree with the above documentation and plan.
[2018-10-21] MEDS ORDERED: Lactated Ringer's 1,000 ML IV SCH (14:00)
--- NOTE | 2018-10-21 16:40 | PDOC.OBMPN ---
[facility] OB LDICU PN: Subj - Interval History Hospital Day: 2 Chief Complaint: Mag check [facility] OB LDICU PN: Obj - Maternal Vital signs: BP: 140/86 HR: 86 - Urine output I&O: 10/20/18 10/21/18 10/22/18 06:59 06:59 06:59 Output Total 1073 Balance -1073 [facility] OB LDICU PN: Exam - Physical Exam General: NAD, awake, alert and oriented HEENT: normocephalic and atraumatic, EOMI, MMM, grossly normal vision, grossly normal hearing Neck: supple, FROM, no JVD Heart: RRR, normal S1/S2, no murmurs/rubs/gallops, pulses present, no edema General: CTAB, no respiratory distress, good air movement, no rales/rhonchi, no wheezing Abdomen: soft, non-tender Musculoskeletal: pulses present, FROM in all four extremities Neurological: sensation to pain,touch and proprioception grossly normal, DTR +2 , no clonus, no tremor, no focal deficit Skin: no rash, good tugor, no jaundice : appropriately tender Lymphatic: no unusual bruising or bleeding Psychiatric: intact recent and remote memory, normal mood and affect [facility] OB LDICU PN: Data - Labs Lab results: Laboratory Results - last 24 hr 10/21/18 10/21/18 08:30 08:30 WBC 12.2 H RBC 3.90 L Hgb 10.9 L Hct 32.4 L MCV 82.9 MCH 27.9 MCHC 33.6 RDW 15.1 H Plt Count 224 MPV 8.6 Sodium 130 L Potassium 4.1 Chloride 103 Carbon Dioxide 19 L Anion Gap 12 BUN 4 L Creatinine 0.61 Estimated GFR (MDRD) Greater than 90 Glucose 104 Calcium 7.4 L Total Bilirubin 0.3 AST 19 ALT 9 Alkaline Phosphatase 106 Serum Total Protein 6.1 Albumin 2.9 L Globulin 3.2 Albumin/Globulin Ratio 0.9 L [facility] OB LDICU PN:A/P - Problem List (1) Elective induction of labor planned Current Visit: Yes Status: Acute Code(s): [id number] - (2) Anemia Current Visit: Yes Status: Acute Code(s): D64.9 - ANEMIA, UNSPECIFIED Qualifiers: Anemia type: iron deficiency (3) Chronic hypertension during Current Visit: Yes Status: Acute Code(s): O10.919 - UNSP PRE-EXISTING HTN COMP , UNSP TRIMESTER Disposition: 38 yo F now who delivered a TAGA male at 1707 on 10/20/18 via @ 38.1 by 10.4wk US complicated by PreE superimposed on cHTN. Patient overall doing well. Complains of FIERRO that is increasing in severity that improves with Tylenol. Denies chest pain, SOB, vision changes, n/v, RUQ pain. #Mag check - no severe range pressures in past 4 hours, avg BP 120s-130s/70s - continue labetelol 200mg BID, will consider transition to Nifedipine or HCTZ or Chlorthalidone once magnesium is discontinued, will check to see what is affordable for patient - Patient states she remembers being on Chlorthalidone several years ago, does not recall how her BP was while on that med - Continue to monitor closely with plan to stop Magnesium at 1700 today Dispo: Admitted to L&D for continued Magnesium, with plan to stop at 1700. Anticipate transition to floor later this evening. Discussion: Date/Time: 10/21/18 6717 This H&P was discussed with [] and [] who agree with the above documentation and plan.
[2018-10-21] MEDS ORDERED: Acetaminophen 325 MG TAB PO SCH (16:45)
[2018-10-21] MEDS: Ibuprofen 800 MG TAB PO SCH ×2 (22:04→22:06)
[2018-10-22] MEDS: Ibuprofen 800 MG TAB PO SCH ×2 (05:12→14:12)
--- NOTE | 2018-10-22 07:16 | PDOC.OBPPN ---
[facility] OB PN: Subj - Interval History Day: 2 38 y/o @ 38.1 WGA delivered via @ 1707 on 10/20. Pt doing well. Off magnesium about 14 hours with all normal blood pressures. Denies H/A, vision changes, RUQ pain, SOB, swelling. She reports ambulating, voiding, and eating without difficulty. Endorses flatus. Reports minimal abdominal pain and lochia. Breast feeding without difficulty. [facility] OB PN: Obj - Maternal Vital signs: BP: 113/73 HR: 65 RR: 16 Tmax: 97.9 - Urine output I&O: 10/21/18 10/22/18 10/23/18 06:59 06:59 06:59 Intake Total 1000 Output Total 1073 100 Balance -1073 900 [facility] OB PN: Exam - Physical Exam General: NAD, awake, alert and oriented HEENT: MMM, conjunctiva clear, grossly normal vision, grossly normal hearing Neck: supple, no LAD Heart: RRR, normal S1/S2, no murmurs/rubs/gallops, pulses present, no edema General: CTAB, no respiratory distress, good air movement, no rales/rhonchi, no wheezing Abdomen: soft, fundus(cm) (firm 1cm below umbilicus) Neurological: no clonus, no focal deficit Skin: good tugor, capillary refill <2 seconds Lymphatic: no unusual bruising or bleeding, no purpura Psychiatric: intact recent and remote memory, good judgement and insight [facility] OB PN: Data - Labs Lab results: Laboratory Results - last 24 hr 10/21/18 10/21/18 08:30 08:30 WBC 12.2 H RBC 3.90 L Hgb 10.9 L Hct 32.4 L MCV 82.9 MCH 27.9 MCHC 33.6 RDW 15.1 H Plt Count 224 MPV 8.6 Sodium 130 L Potassium 4.1 Chloride 103 Carbon Dioxide 19 L Anion Gap 12 BUN 4 L Creatinine 0.61 Estimated GFR (MDRD) Greater than 90 Glucose 104 Calcium 7.4 L Total Bilirubin 0.3 AST 19 ALT 9 Alkaline Phosphatase 106 Serum Total Protein 6.1 Albumin 2.9 L Globulin 3.2 Albumin/Globulin Ratio 0.9 L [facility] OB PN: A/P - Problem List (1) Term delivered Current Visit: Yes Status: Acute Code(s): O80 - ENCOUNTER FOR FULL-TERM UNCOMPLICATED DELIVERY Assessment and Plan: PPD#2 s/p -Ibuprofen and tylenol for pain control -Encourage ambulation -Tolerating PO -Does not desire circ for , plans to breast and bottle feed (2) Chronic hypertension with superimposed preeclampsia Current Visit: Yes Status: Acute Code(s): O11.9 - PRE-EXISTING HYPERTENSION WITH PRE-ECLAMPSIA, UNSP TRIMESTER Assessment and Plan: BP well controlled since magnesium stopped. Labs stable yesterday -Continue magnesium for 24 hours -Monitor BP's closely -Labetalol 200mg BID PO, will switch to CCB this AM (3) AMA (advanced maternal age) multigravida 35+ Current Visit: Yes Status: Acute Code(s): O09.529 - SUPERVISION OF ELDERLY MULTIGRAVIDA, UNSPECIFIED TRIMESTER (4) Grand multiparity Current Visit: Yes Status: Acute Code(s): Z64.1 - PROBLEMS RELATED TO MULTIPARITY Disposition: Monitor BP's closely on PP Discussion: Date/Time: 10/22/18 2414 This H&P was discussed with Dr. Romero who agrees with the above documentation and plan. Signature: Roxanne Lawrence MD, PGY-3 Addendum - Attending - Attending Attestation Date/Time: 10/22/18 1054 I personally evaluated the patient and discussed the management with Dr. Lawrence I agree with the History, Examination, Assessment and Plan documented above with any addition or exceptions noted below. day 2 s/p complicated by superimposed preeclampsia. Pt asymptomatic and BP has been controlled. Meeting appropriate milestones. Will monitor and if BP remains good can d/c to home later today.
[2018-10-22 08:15] VITALS: TEMP 98.1
[2018-10-22] MEDS ORDERED: NIFEdipine XL 30 MG TAB PO SCH (09:00)
[2018-10-22] MEDS: Ferrous Sulfate 325 MG TAB PO SCH (09:15)
[2018-10-22] MEDS: Docusate Calcium (SURFAK) 240 MG CAP PO SCH (09:22)
[2018-10-22] MEDS: Prenatal Vitamin 1 TAB PO SCH (09:22)
[2018-10-22 15:08] VITALS: BP 132/77
== END 2018-10-22 17:00 | disposition home or self-care (01) | DRG 806 ==
LOC: L&D 06:14 → 3SW 10-21 18:31
PROVIDERS: ADMIT Family Medicine; ATTEND Family Medicine
PROC: 10E0XZZ Delivery of Products of Conception, External Approach (ICD-10-PCS; principal; 2018-10-20)
PROC: 10907ZC Drainage of Amniotic Fluid, Therapeutic from Products of Conception, Via Natural or Artificial Opening (ICD-10-PCS; 2018-10-20)
PROC: 3E0P7VZ Introduction of Hormone into Female Reproductive, Via Natural or Artificial Opening (ICD-10-PCS; 2018-10-20)
PROC: 3E033VJ Introduction of Other Hormone into Peripheral Vein, Percutaneous Approach (ICD-10-PCS; 2018-10-20)
DX: O11.4 Pre-existing hypertension with pre-eclampsia, complicating childbirth (principal); D62 Acute posthemorrhagic anemia; Z37.0 Single live birth; O72.1 Other immediate postpartum hemorrhage; O99.02 Anemia complicating childbirth; O99.814 Abnormal glucose complicating childbirth; O10.02 Pre-existing essential hypertension complicating childbirth; D50.9 Iron deficiency anemia, unspecified; Z3A.38 38 weeks gestation of pregnancy
CPT/HCPCS: 36415; 51702; 80053; 82570; 84156; 85027; 86780; 86850; 86900; 86901; 87340; J0360; J2001; J2210; J2590; J3475; J3490; S0020

== ENCOUNTER 2019-01-04 21:32 | Emergency (ER) | payer SELFPAY ==
[2019-01-04] MEDS ORDERED: Prochlorperazine 10 MG/2 ML VIAL ONE (21:55)
[2019-01-04] MEDS ORDERED: diphenhydrAMINE 50 MG/ML VIAL ONE (21:55)
[2019-01-04] MEDS ORDERED: Ketorolac Tromethamine 30 MG/ML VIAL ONE (21:55)
[2019-01-04] MEDS ORDERED: methylPREDNISolone Sod Succ/PF 125 MG/2 ML VIAL ONE (22:36)
== END 2019-01-04 23:19 | disposition home or self-care (01) ==
LOC: SCSER 21:32
DX: G44.209 Tension-type headache, unspecified, not intractable (principal); I10 Essential (primary) hypertension; Z79.899 Other long term (current) drug therapy
CPT/HCPCS: 96365; 96367; 96375; J0780; J1200; J1885; J2930